=== PATIENT | male | born 1990 | race Hispanic/Latino ===

== ENCOUNTER 2020-11-09 21:29 | Emergency (ER) | payer OTHER ==
[2020-11-09 22:02] LABS: BASOPHILS % (AUTO) 0.2 % (0.0-5.0); EOSINOPHILS % (AUTO) 0.3 % (0.0-8.0); HEMATOCRIT 48.3 % (42-54); LYMPHOCYTES % (AUTO) 5.5 % (21.0-51.0); MEAN CORPUSCULAR HEMOGLOBIN 32.3 pg (27.0-33.0); MEAN CORPUSCULAR VOLUME 92.2 fL (79-99); MONOCYTES % (AUTO) 3.5 % (3.0-13.0); NEUTROPHILS % (AUTO) 90.2 % (40.0-77.0); PLATELET COUNT (AUTO) 340 K/uL (130-400); RED BLOOD CELL COUNT(AUTO) 5.24 MIL/uL (4.50-6.20); RED CELL DISTRIBUTION WIDTH 12.3 % (11.0-15.5); WHITE BLOOD COUNT (AUTO) 20.3 K/uL (4.8-10.8)
[2020-11-09 22:14] LABS: POTASSIUM 3.6 mmol/L (3.5-5.1)
[2020-11-09 22:19] LABS: ALBUMIN 4.7 g/dL (3.5-5.0); BILIRUBIN,TOTAL 1.3 mg/dL (0.2-1.0); TOTAL PROTEIN, SERUM 8.7 g/dL (6.0-8.3)
[2020-11-09] MEDS ORDERED: FAMOTIDINE 20MG TAB 20 MG TAB ONE (22:40)
[2020-11-09] MEDS ORDERED: MAG HYDROX/AL HYDROX/SIMETH ES 30 ML SUSP UDCUP ONE (22:40)
[2020-11-09] MEDS ORDERED: ONDANSETRON HCL 4 MG/2 ML VIAL ONE (22:40)
[2020-11-09] MEDS ORDERED: LIDOCAINE HCL 2% VISCOUS 15 ML UDCUP ONE (22:40)
[2020-11-09] MEDS ORDERED: IOHEXOL-350 75 ML VIAL IV ONE (22:50)
[2020-11-09 22:53] LABS: BILIRUBIN,URINE Small (NEGATIVE); COLOR,URINE Dark Yellow (YELLOW); GLUCOSE, URINE (UA) Negative (NEGATIVE); KETONES,URINE Trace mg/dL (NEGATIVE); LEUKOCYTE ESTERASE ,URINE Negative (NEGATIVE); NITRATE,URINE Negative (NEGATIVE); OCCULT BLOOD,URINE Trace (NEGATIVE); PH,URINE 5.5 (5.0-8.0); PROTEIN,URINE POS 1+ mg/dL (NEGATIVE)
[2020-11-09 22:55] LABS: APPEARANCE,URINE CLOUDY (CLEAR)
[2020-11-09 23:00] LABS: AMORPHOUS SEDIMENT,UR Moderate /LPF (None Seen); BACTERIA,URINE None Seen /HPF (None Seen); MUCUS,URINE Many LPF (None Seen); SQUAMOUS EPITHELIAL CELL,UR Few /HPF (0-2); WBC,URINE 0-1 /HPF (0-1)
[2020-11-09] MEDS ORDERED: ZOSYN 3.375GM+NS 50ML 50 ML IV ONE (23:19)
[2020-11-10] MEDS ORDERED: SODIUM CHLORIDE 0.9% 1000ML 2,000 ML IV ONE (00:01)
[2020-11-10] MEDS ORDERED: METOCLOPRAMIDE 10 MG/2 ML VIAL ONE (00:37)
== END 2020-11-10 01:30 | disposition home or self-care (01) ==
LOC: EDH 21:29
DX: K29.00 Acute gastritis without bleeding (principal); E86.0 Dehydration; Z72.0 Tobacco use
CPT/HCPCS: 36415; 74177; 80053; 81001; 83690; 85025; 96365; 96366; 96375 ×2; 99285; J2405; J2543; J2765; J7030; Q9967

== ENCOUNTER 2021-03-28 13:34 | Inpatient (IN) | payer SELFPAY ==
[~2021-03-28] VITALS: Ht 162.6 cm; Wt 117.9 kg
[2021-03-28 15:46] LABS: BASOPHILS % (AUTO) 0.3 % (0.0-5.0); HEMATOCRIT 45.5 % (42-54); LYMPHOCYTES % (AUTO) 9.4 % (21.0-51.0); MEAN CORPUSCULAR HEMOGLOBIN 32.6 pg (27.0-33.0); MEAN CORPUSCULAR HGB CONC 34.9 g/dL (32.0-36.0); MEAN CORPUSCULAR VOLUME 93.4 fL (79-99); MONOCYTES % (AUTO) 6.1 % (3.0-13.0); NEUTROPHILS % (AUTO) 83.8 % (40.0-77.0); PLATELET COUNT (AUTO) 300 K/uL (130-400); RED BLOOD CELL COUNT(AUTO) 4.87 MIL/uL (4.50-6.20); RED CELL DISTRIBUTION WIDTH 12.8 % (11.0-15.5); WHITE BLOOD COUNT (AUTO) 20.1 K/uL (4.8-10.8)
[2021-03-28 15:57] LABS: CARBON DIOXIDE 32 mmol/L (21-32); CHLORIDE 99 mmol/L (101-111); GLOMERULAR FILTR. RATE CALC 93 mL/min (>60); GLUCOSE,RANDOM 119 mg/dL (70-105); SODIUM SERUM 139 mmol/L (136-145); UREA NITROGEN, BLOOD 9 mg/dL (7-18)
[2021-03-28 16:02] LABS: ALANINE AMINOTRANSFERASE 31 U/L (12-78); ALBUMIN 4.3 g/dL (3.5-5.0); ALCOHOL, BLOOD < 3 mg/dL (0-10); ASPARTATE AMINOTRANSFERASE 11 U/L (10-37); BILIRUBIN,TOTAL 2.7 mg/dL (0.2-1.0); TOTAL PROTEIN, SERUM 8.5 g/dL (6.0-8.3)
[2021-03-28] MEDS ORDERED: ZOSYN 3.375GM +NS 50ML IV ONE (17:30)
[2021-03-28] MEDS ORDERED: ACETAMINOPHEN 325 MG TAB PO ONE (17:30)
[2021-03-28] MEDS ORDERED: ONDANSETRON 4MG INJ IVP ONE (17:30)
[2021-03-28] MEDS ORDERED: MORPHINE 2 MG SYG IVP ONE (17:30)
[2021-03-28] MEDS ORDERED: 0.9%NACL 1000ML 1,000 ML IV ONE (17:30)
[2021-03-28] MEDS ORDERED: IOHEXOL 350 MG/ML 100ML INFUS..BTL IV ONE (17:32)
[2021-03-28] MEDS ORDERED: ZOSYN 3.375GM+NS 50ML 50 ML IV ONE (20:01)
[2021-03-28] MEDS ORDERED: ONDANSETRON 4MG INJ ONE (20:01)
[2021-03-28] MEDS ORDERED: ACETAMINOPHEN 325 MG TAB ONE (20:01)
[2021-03-28] MEDS ORDERED: MORPHINE 2 MG SYG ONE (20:02)
[2021-03-28 20:13] VITALS: BP 160/87
[2021-03-28] MEDS ORDERED: LACTULOSE 20 GM/30 ML UDCUP PO PRN (20:30)
[2021-03-28] MEDS ORDERED: ACETAMINOPHEN 325 MG SUPPOSITORY RC PRN ×2 (20:30)
[2021-03-28] MEDS ORDERED: NITROGLYCERIN 0.4 MG SL TAB SL PRN (20:30)
[2021-03-28] MEDS ORDERED: CHLORDIAZEPOXIDE HCL 25 MG CAP PO PRN ×2 (20:30)
[2021-03-28] MEDS ORDERED: ONDANSETRON 4MG INJ IV PRN (20:30)
[2021-03-28] MEDS: THIAMINE HCL 100 MG, FOLIC ACID 1 MG, M.V.I. IV [ADULT] 10 ML in 0.9%NACL 1000ML 1,000 ML IV SCH (20:30)
[2021-03-28] MEDS ORDERED: LORAZEPAM 2 MG/ML 1 ML VIAL IVP PRN ×2 (20:30)
[2021-03-28] MEDS ORDERED: PHARMACY COMMUNICATION MISC PRN (20:30)
[2021-03-28] MEDS ORDERED: PROMETHAZINE HCL 25 MG TABLET PO PRN (20:30)
[2021-03-28] MEDS ORDERED: 0.9%NACL 1000ML 1,000 ML IV SCH (20:30)
[2021-03-28] MEDS: FAMOTIDINE 20MG VIAL IV SCH (21:00)
[2021-03-28] MEDS: 0.9%NACL 1000ML 1,000 ML IV SCH (21:20)
[2021-03-28 21:36] LABS: INR 1.1 (0.85-1.15); PROTHROMBIN TIME 11.9 SEC (9.6-11.6)
[2021-03-28 21:37] LABS: PARTIAL THROMBOPLASTIN TIME 27.6 SEC (26.3-35.5)
[2021-03-28 21:38] LABS: CRP QUANTITATIVE 161.7 mg/L (0.00-9.0); MAGNESIUM 2.1 mg/dL (1.80-2.40)
[2021-03-28 21:52] LABS: AMYLASE 43 U/L (25-115); LIPASE 88 U/L (114-286)
[2021-03-28 22:55] LABS: APPEARANCE,URINE Clear (CLEAR); BILIRUBIN,URINE Negative (NEGATIVE); COLOR,URINE Yellow (YELLOW); GLUCOSE, URINE (UA) Negative (NEGATIVE); KETONES,URINE 40 mg/dL (NEGATIVE); LEUKOCYTE ESTERASE ,URINE Negative (NEGATIVE); NITRATE,URINE Negative (NEGATIVE); OCCULT BLOOD,URINE Trace (NEGATIVE); PH,URINE 6.5 (5.0-8.0); PROTEIN,URINE Trace mg/dL (NEGATIVE)
[2021-03-28 23:00] VITALS: BP_SYST 108; BP_SYST 156; BP_DIAS 56; BP_DIAS 84
[2021-03-28 23:03] LABS: AMPHET/METH SCREEN,URINE NEGATIVE (NEGATIVE); BARBITURATE SCREEN, URINE NEGATIVE (NEGATIVE); BENZODIAZEPINES SCREEN,URINE NEGATIVE (NEGATIVE); CANNABINOID SCREEN,URINE POSITIVE (NEGATIVE); COCAINE SCREEN,URINE NEGATIVE (NEGATIVE); OPIATE SCREEN,URINE POSITIVE (NEGATIVE); PHENCYCLIDINE SCREEN,URINE NEGATIVE (NEGATIVE)
[2021-03-28 23:27] LABS: BACTERIA,URINE None Seen /HPF (None Seen); RBC,URINE 0-1 /HPF (0-1); SQUAMOUS EPITHELIAL CELL,UR Moderate /HPF (0-2); WBC,URINE 0-1 /HPF (0-1)
[2021-03-29] VITALS (8 sets, daily range): BP systolic 114–150; BP diastolic 62–84
[2021-03-29] MEDS ORDERED: 0.9%NACL 50ML 50 ML IV ONE (04:29)
[2021-03-29] MEDS: ZOSYN 3.375GM+NS 50ML 50 ML IV SCH ×4 (04:39→21:04)
[2021-03-29] MEDS: 0.9%NACL 1000ML 1,000 ML IV SCH ×2 (04:40→17:55)
[2021-03-29 04:52] LABS: BASOPHILS % (AUTO) 0.2 % (0.0-5.0); EOSINOPHILS % (AUTO) 0.9 % (0.0-8.0); HEMATOCRIT 40.8 % (42-54); LYMPHOCYTES % (AUTO) 12.1 % (21.0-51.0); MEAN CORPUSCULAR HEMOGLOBIN 32.2 pg (27.0-33.0); MEAN CORPUSCULAR HGB CONC 34.1 g/dL (32.0-36.0); MEAN CORPUSCULAR VOLUME 94.4 fL (79-99); MONOCYTES % (AUTO) 7.2 % (3.0-13.0); NEUTROPHILS % (AUTO) 79.1 % (40.0-77.0); PLATELET COUNT (AUTO) 237 K/uL (130-400); RED BLOOD CELL COUNT(AUTO) 4.32 MIL/uL (4.50-6.20); RED CELL DISTRIBUTION WIDTH 12.8 % (11.0-15.5)
[2021-03-29 04:58] LABS: CREATININE 0.7 mg/dL (0.5-1.5); POTASSIUM 3.4 mmol/L (3.5-5.1)
[2021-03-29 05:03] LABS: ALBUMIN 3.2 g/dL (3.5-5.0); BILIRUBIN,TOTAL 2.6 mg/dL (0.2-1.0); MAGNESIUM 1.9 mg/dL (1.80-2.40); PHOSPHORUS 2.5 mg/dL (2.5-4.9); TOTAL PROTEIN, SERUM 6.7 g/dL (6.0-8.3)
[2021-03-29] MEDS ORDERED: ENOXAPARIN SODIUM 40 MG/0.4 ML SYRINGE SQ SCH (09:00)
[2021-03-29] MEDS: FAMOTIDINE 20MG VIAL IV SCH ×2 (09:24→21:05)
[2021-03-29] MEDS ORDERED: 0.9%NACL 100ML 100 ML ONE (13:11)
[2021-03-29] MEDS ORDERED: LIDOCAINE HCL-MPF 1% 2ML VIAL IV PRN (14:30)
[2021-03-29] MEDS ORDERED: KCL 20 MEQ ERTAB PO PRN (14:30)
[2021-03-29] MEDS ORDERED: MORPHINE 2 MG SYG IVP PRN (14:30)
[2021-03-29] MEDS ORDERED: POTASSIUM CHLORIDE 20MEQ/100ML 100 ML IV PRN (14:30)
[2021-03-29] MEDS: THIAMINE HCL 100 MG, FOLIC ACID 1 MG, M.V.I. IV [ADULT] 10 ML in 0.9%NACL 1000ML 1,000 ML IV SCH (21:04)
[2021-03-29] MEDS: POTASSIUM CHLORIDE 10% ELIXIR 20 MEQ/15 ML UDCUP PO PRN (21:47)
[2021-03-30] MEDS: POTASSIUM CHLORIDE 10% ELIXIR 20 MEQ/15 ML UDCUP PO PRN (00:12)
[2021-03-30] MEDS: 0.9%NACL 1000ML 1,000 ML IV SCH (02:30)
[2021-03-30 04:09] VITALS: BP 136/73
[2021-03-30] MEDS: ZOSYN 3.375GM+NS 50ML 50 ML IV SCH (04:13)
[2021-03-30 05:05] LABS: BASOPHILS % (AUTO) 0.3 % (0.0-5.0); EOSINOPHILS % (AUTO) 0.7 % (0.0-8.0); HEMATOCRIT 40.1 % (42-54); LYMPHOCYTES % (AUTO) 13.2 % (21.0-51.0); MEAN CORPUSCULAR HEMOGLOBIN 31.9 pg (27.0-33.0); MEAN CORPUSCULAR HGB CONC 33.9 g/dL (32.0-36.0); MEAN CORPUSCULAR VOLUME 94.1 fL (79-99); MONOCYTES % (AUTO) 8.1 % (3.0-13.0); NEUTROPHILS % (AUTO) 77.3 % (40.0-77.0); PLATELET COUNT (AUTO) 286 K/uL (130-400); RED BLOOD CELL COUNT(AUTO) 4.26 MIL/uL (4.50-6.20); RED CELL DISTRIBUTION WIDTH 12.5 % (11.0-15.5); WHITE BLOOD COUNT (AUTO) 12.9 K/uL (4.8-10.8)
[2021-03-30 05:26] LABS: ALBUMIN 3.2 g/dL (3.5-5.0); BILIRUBIN,TOTAL 2.8 mg/dL (0.2-1.0); CREATININE 0.9 mg/dL (0.5-1.5); MAGNESIUM 1.9 mg/dL (1.80-2.40); PHOSPHORUS 2.8 mg/dL (2.5-4.9); POTASSIUM 3.9 mmol/L (3.5-5.1)
[2021-03-30 07:35] VITALS: BP 128/69
[2021-03-30] MEDS ORDERED: AMOX-429 PO (08:20)
[2021-03-30] MEDS ORDERED: PANT40TA PO (08:20)
[2021-03-30] MEDS: FAMOTIDINE 20MG VIAL IV SCH (08:45)
[2021-03-30 12:00] VITALS: BP 156/89
== END 2021-03-30 14:20 | disposition home or self-care (01) | DRG 872 ==
LOC: EDH 13:34 → EDHIP 13:35 → 3DH 03-29 15:45
PROVIDERS: ADMIT Hospitalist; ATTEND Hospitalist
DX: A41.9 Sepsis, unspecified organism (principal); K57.32 Diverticulitis of large intestine without perforation or abscess without bleeding; Z68.41 Body mass index [BMI] 40.0-44.9, adult; E66.01 Morbid (severe) obesity due to excess calories; K42.9 Umbilical hernia without obstruction or gangrene; Z20.822 Contact with and (suspected) exposure to COVID-19; K76.0 Fatty (change of) liver, not elsewhere classified; Z83.6 Family history of other diseases of the respiratory system
CPT/HCPCS: 36415; 71045; 74177; 76870; 80053; 80305; 81001; 82150; 83605; 83690; 83735; 84100; 84145; 85025; 85610; 85651; 85730; 86140; 87040; 87088; 87635; 87804; 87880; C9803; G0378; J1650; J2405; J2543; J3411; J3490; J7030; Q9967

== ENCOUNTER 2021-04-01 09:12 | Inpatient (IN) | payer OTHER, SELFPAY ==
[~2021-04-01] VITALS: Ht 162.6 cm; Wt 117.9 kg
[~2021-04-01 09:12] MED LIST: AMOX-429 PO; PANT40TA PO
[2021-04-01 09:53] LABS: BASOPHILS % (AUTO) 0.4 % (0.0-5.0); EOSINOPHILS % (AUTO) 1.1 % (0.0-8.0); HEMATOCRIT 42.4 % (42-54); LYMPHOCYTES % (AUTO) 17.7 % (21.0-51.0); MEAN CORPUSCULAR HEMOGLOBIN 32.2 pg (27.0-33.0); MEAN CORPUSCULAR HGB CONC 34.9 g/dL (32.0-36.0); MEAN CORPUSCULAR VOLUME 92.2 fL (79-99); MONOCYTES % (AUTO) 8.6 % (3.0-13.0); NEUTROPHILS % (AUTO) 71.8 % (40.0-77.0); PLATELET COUNT (AUTO) 365 K/uL (130-400); RED CELL DISTRIBUTION WIDTH 12.5 % (11.0-15.5); WHITE BLOOD COUNT (AUTO) 11.8 K/uL (4.8-10.8)
[2021-04-01] MEDS ORDERED: ONDANSETRON 4MG INJ IVP SCH (10:00)
[2021-04-01] MEDS ORDERED: KETOROLAC 30MG VIAL (30MG/ML) IVP SCH (10:00)
[2021-04-01] MEDS ORDERED: LACTATED RINGERS 1000ML 1,000 ML IV SCH (10:00)
[2021-04-01 10:04] LABS: POTASSIUM 3.2 mmol/L (3.5-5.1)
[2021-04-01 10:09] LABS: ALBUMIN 3.8 g/dL (3.5-5.0); BILIRUBIN,TOTAL 1.4 mg/dL (0.2-1.0)
[2021-04-01] MEDS ORDERED: FENTANYL CITRATE PF 50 MCG/1 ML 2ML VIAL IVP SCH (10:30)
[2021-04-01] MEDS ORDERED: DiphenhydrAMINE HCL 50 MG/ML VIAL IV SCH (11:00)
[2021-04-01] MEDS ORDERED: FAMOTIDINE 20MG VIAL IV SCH (11:00)
[2021-04-01] MEDS ORDERED: PROCHLORPERAZINE 10MG/2ML INJ IV SCH (11:00)
[2021-04-01 12:53] VITALS: BP 131/56
[2021-04-01] MEDS ORDERED: LACTATED RINGERS 1000ML 1,000 ML IV ONE (13:30)
[2021-04-01] MEDS ORDERED: ZOSYN 3.375GM +NS 50ML IV ONE (13:30)
[2021-04-01] MEDS ORDERED: ZOSYN 3.375GM+NS 50ML 50 ML IV ONE (14:43)
[2021-04-01 15:14] VITALS: BP 131/64
[2021-04-01 16:57] VITALS: BP 140/78
[2021-04-01] MEDS ORDERED: 0.9%NACL 50ML 50 ML IV ONE (20:57)
[2021-04-01] MEDS: FAMOTIDINE 20MG VIAL IV SCH (21:09)
[2021-04-01] MEDS: ZOSYN 3.375GM+NS 50ML 50 ML IV SCH (21:09)
[2021-04-01 21:11] VITALS: BP 122/59
[2021-04-01 22:32] VITALS: BP 123/68
[2021-04-01 23:00] VITALS: BP 136/67
[2021-04-02 04:07] VITALS: BP 113/61
[2021-04-02] MEDS: ZOSYN 3.375GM+NS 50ML 50 ML IV SCH ×3 (04:37→20:40)
[2021-04-02] MEDS ORDERED: ONDANSETRON 4MG INJ IVP PRN (07:30)
[2021-04-02 08:00] VITALS: BP 122/67
[2021-04-02] MEDS: FAMOTIDINE 20MG VIAL IV SCH ×2 (09:00→20:41)
[2021-04-02 11:55] VITALS: BP 124/74
[2021-04-02] MEDS ORDERED: MORPHINE 2 MG SYG IVP PRN (13:27)
[2021-04-02 16:00] VITALS: BP 133/69
[2021-04-02 19:30] VITALS: BP 121/63
[2021-04-02] MEDS: POTASSIUM CHLORIDE 20MEQ/100ML 100 ML IV PRN (20:41)
[2021-04-02] MEDS: LIDOCAINE HCL-MPF 1% 2ML VIAL IV PRN (20:41)
[2021-04-03] VITALS (7 sets, daily range): BP systolic 110–144; BP diastolic 51–82
[2021-04-03] MEDS: POTASSIUM CHLORIDE 20MEQ/100ML 100 ML IV PRN (03:38)
[2021-04-03] MEDS: ZOSYN 3.375GM+NS 50ML 50 ML IV SCH ×3 (03:38→20:11)
[2021-04-03] MEDS: LIDOCAINE HCL-MPF 1% 2ML VIAL IV PRN (03:38)
[2021-04-03 05:57] LABS: BASOPHILS % (AUTO) 0.8 % (0.0-5.0); EOSINOPHILS % (AUTO) 1.1 % (0.0-8.0); HEMATOCRIT 39.9 % (42-54); LYMPHOCYTES % (AUTO) 24.4 % (21.0-51.0); MEAN CORPUSCULAR HEMOGLOBIN 32.2 pg (27.0-33.0); MEAN CORPUSCULAR HGB CONC 34.6 g/dL (32.0-36.0); MEAN CORPUSCULAR VOLUME 93.2 fL (79-99); MONOCYTES % (AUTO) 7.7 % (3.0-13.0); NEUTROPHILS % (AUTO) 65.7 % (40.0-77.0); PLATELET COUNT (AUTO) 329 K/uL (130-400); RED BLOOD CELL COUNT(AUTO) 4.28 MIL/uL (4.50-6.20); RED CELL DISTRIBUTION WIDTH 12.5 % (11.0-15.5); WHITE BLOOD COUNT (AUTO) 10.1 K/uL (4.8-10.8)
[2021-04-03 06:07] LABS: POTASSIUM 3.6 mmol/L (3.5-5.1)
[2021-04-03 08:56] LABS: APPEARANCE,URINE Clear (CLEAR); BILIRUBIN,URINE Negative (NEGATIVE); COLOR,URINE Dark Yellow (YELLOW); GLUCOSE, URINE (UA) Negative (NEGATIVE); KETONES,URINE >=160 mg/dL (NEGATIVE); LEUKOCYTE ESTERASE ,URINE Negative (NEGATIVE); NITRATE,URINE Negative (NEGATIVE); OCCULT BLOOD,URINE Nonhemolyzed Trace (NEGATIVE); PH,URINE 5.5 (5.0-8.0); PROTEIN,URINE POS 1+ mg/dL (NEGATIVE)
[2021-04-03 09:23] LABS: BACTERIA,URINE Few /HPF (None Seen); RBC,URINE 0-1 /HPF (0-1)
[2021-04-03] MEDS: FAMOTIDINE 20MG VIAL IV SCH ×2 (09:27→20:11)
[2021-04-04] MEDS ORDERED: POTASSIUM CHLORIDE 10% ELIXIR 20 MEQ/15 ML UDCUP PO PRN
[2021-04-04] MEDS ORDERED: KCL 20 MEQ ERTAB PO PRN
[2021-04-04] MEDS ORDERED: KCL 20 MEQ ERTAB PO ONE ×2 (00:10→02:10)
[2021-04-04 04:01] VITALS: BP 142/91
[2021-04-04] MEDS: ZOSYN 3.375GM+NS 50ML 50 ML IV SCH ×3 (05:31→20:43)
[2021-04-04 05:57] LABS: BASOPHILS % (AUTO) 0.3 % (0.0-5.0); EOSINOPHILS % (AUTO) 1.3 % (0.0-8.0); HEMATOCRIT 40.6 % (42-54); LYMPHOCYTES % (AUTO) 24.9 % (21.0-51.0); MEAN CORPUSCULAR HEMOGLOBIN 32.3 pg (27.0-33.0); MEAN CORPUSCULAR VOLUME 92.3 fL (79-99); MONOCYTES % (AUTO) 7.8 % (3.0-13.0); NEUTROPHILS % (AUTO) 65.3 % (40.0-77.0); PLATELET COUNT (AUTO) 365 K/uL (130-400); RED CELL DISTRIBUTION WIDTH 12.1 % (11.0-15.5); WHITE BLOOD COUNT (AUTO) 10.2 K/uL (4.8-10.8)
[2021-04-04 06:15] LABS: ALBUMIN 3.4 g/dL (3.5-5.0); BILIRUBIN,TOTAL 2.2 mg/dL (0.2-1.0); CREATININE 0.9 mg/dL (0.5-1.5); POTASSIUM 3.8 mmol/L (3.5-5.1); TOTAL PROTEIN, SERUM 7.2 g/dL (6.0-8.3)
[2021-04-04 08:00] VITALS: BP 126/72
[2021-04-04] MEDS: FAMOTIDINE 20MG VIAL IV SCH ×2 (09:12→20:43)
[2021-04-04 11:40] VITALS: BP 132/86
[2021-04-04 16:00] VITALS: BP 143/88
[2021-04-04 19:59] VITALS: BP 140/96
[2021-04-04 23:17] VITALS: BP 123/75
[2021-04-05 04:00] VITALS: BP 133/76
[2021-04-05] MEDS: ZOSYN 3.375GM+NS 50ML 50 ML IV SCH ×3 (04:12→21:52)
[2021-04-05 05:10] LABS: BASOPHILS % (AUTO) 0.5 % (0.0-5.0); EOSINOPHILS % (AUTO) 0.9 % (0.0-8.0); LYMPHOCYTES % (AUTO) 19.1 % (21.0-51.0); MEAN CORPUSCULAR HEMOGLOBIN 31.7 pg (27.0-33.0); MEAN CORPUSCULAR HGB CONC 34.3 g/dL (32.0-36.0); MEAN CORPUSCULAR VOLUME 92.5 fL (79-99); MONOCYTES % (AUTO) 8.7 % (3.0-13.0); NEUTROPHILS % (AUTO) 70.3 % (40.0-77.0); PLATELET COUNT (AUTO) 366 K/uL (130-400); RED BLOOD CELL COUNT(AUTO) 4.54 MIL/uL (4.50-6.20); RED CELL DISTRIBUTION WIDTH 12.2 % (11.0-15.5); WHITE BLOOD COUNT (AUTO) 10.6 K/uL (4.8-10.8)
[2021-04-05 05:31] LABS: ALBUMIN 3.4 g/dL (3.5-5.0); BILIRUBIN,TOTAL 2.5 mg/dL (0.2-1.0); POTASSIUM 3.5 mmol/L (3.5-5.1); TOTAL PROTEIN, SERUM 7.4 g/dL (6.0-8.3)
[2021-04-05 05:35] LABS: INR 1.18 (0.85-1.15); PROTHROMBIN TIME 12.7 SEC (9.6-11.6)
[2021-04-05 05:36] LABS: PARTIAL THROMBOPLASTIN TIME 26.8 SEC (26.3-35.5)
[2021-04-05 08:00] VITALS: BP 135/60
[2021-04-05] MEDS ORDERED: DIATR MEGLU/DIATRIZOATE SODIUM 30 ML BOTTLE ONE (09:18)
[2021-04-05] MEDS: FAMOTIDINE 20MG VIAL IV SCH ×2 (10:47→21:52)
[2021-04-05] MEDS ORDERED: IOHEXOL-350 75 ML VIAL IV ONE (14:25)
[2021-04-05 16:00] VITALS: BP 133/80
[2021-04-05 20:00] VITALS: BP 121/78
[2021-04-06] VITALS: BP 136/69
[2021-04-06 04:00] VITALS: BP 121/78
[2021-04-06] MEDS: ZOSYN 3.375GM+NS 50ML 50 ML IV SCH ×3 (04:25→20:34)
[2021-04-06 04:46] LABS: BASOPHILS % (AUTO) 0.4 % (0.0-5.0); EOSINOPHILS % (AUTO) 1.3 % (0.0-8.0); HEMATOCRIT 41.4 % (42-54); LYMPHOCYTES % (AUTO) 16.4 % (21.0-51.0); MEAN CORPUSCULAR HEMOGLOBIN 32.2 pg (27.0-33.0); MEAN CORPUSCULAR HGB CONC 35.3 g/dL (32.0-36.0); MEAN CORPUSCULAR VOLUME 91.2 fL (79-99); MONOCYTES % (AUTO) 7.8 % (3.0-13.0); NEUTROPHILS % (AUTO) 73.5 % (40.0-77.0); PLATELET COUNT (AUTO) 375 K/uL (130-400); RED BLOOD CELL COUNT(AUTO) 4.54 MIL/uL (4.50-6.20); RED CELL DISTRIBUTION WIDTH 12.2 % (11.0-15.5); WHITE BLOOD COUNT (AUTO) 12.7 K/uL (4.8-10.8)
[2021-04-06 05:13] LABS: ALBUMIN 3.5 g/dL (3.5-5.0); BILIRUBIN,TOTAL 2.4 mg/dL (0.2-1.0); CREATININE 0.9 mg/dL (0.5-1.5); POTASSIUM 3.8 mmol/L (3.5-5.1); TOTAL PROTEIN, SERUM 7.5 g/dL (6.0-8.3)
[2021-04-06 08:19] VITALS: BP 138/81
[2021-04-06] MEDS ORDERED: METR500T PO (09:47)
[2021-04-06] MEDS ORDERED: LEVO750T46 PO (09:47)
[2021-04-06] MEDS: FAMOTIDINE 20MG VIAL IV SCH ×2 (10:45→20:33)
[2021-04-06 11:41] VITALS: BP 126/78
[2021-04-06 16:45] VITALS: BP 130/80
[2021-04-06 20:15] VITALS: BP 135/82
[2021-04-07 00:27] VITALS: BP 132/80
[2021-04-07 04:14] VITALS: BP 122/91
[2021-04-07] MEDS: ZOSYN 3.375GM+NS 50ML 50 ML IV SCH ×3 (04:33→21:15)
[2021-04-07 08:00] VITALS: BP 110/62
[2021-04-07] MEDS: FAMOTIDINE 20MG VIAL IV SCH ×2 (09:26→20:23)
[2021-04-07 12:00] VITALS: BP 134/85
[2021-04-07 16:00] VITALS: BP 126/86
[2021-04-07] MEDS: FLUCONAZOLE 200 MG/NS 100 ML 100 ML IV SCH (16:47)
[2021-04-07 20:00] VITALS: BP 140/80
[2021-04-07] MEDS ORDERED: ACETAMINOPHEN 325 MG TAB PO PRN (21:00)
[2021-04-08] VITALS: BP 126/67
[2021-04-08 04:00] VITALS: BP 128/75
[2021-04-08] MEDS: ZOSYN 3.375GM+NS 50ML 50 ML IV SCH ×2 (06:35→15:19)
[2021-04-08 08:00] VITALS: BP 140/80
[2021-04-08] MEDS: FAMOTIDINE 20MG VIAL IV SCH (09:36)
[2021-04-08 12:00] VITALS: BP 141/74
[2021-04-08] MEDS: FLUCONAZOLE 200 MG/NS 100 ML 100 ML IV SCH (15:21)
[2021-04-08 16:00] VITALS: BP 140/71
[2021-04-08] MEDS ORDERED: AMOX-429 PO (16:39)
[2021-04-08] MEDS ORDERED: FLUC200T8 PO (16:39)
== END 2021-04-08 18:00 | disposition home or self-care (01) | DRG 391 ==
LOC: EDH 09:12 → EDHIP 09:13 → OBSVTOIN 09:13 → 3CH 22:24
PROVIDERS: ADMIT Internal Medicine; ATTEND Internal Medicine
DX: K57.20 Diverticulitis of large intestine with perforation and abscess without bleeding (principal); K65.9 Peritonitis, unspecified; N20.2 Calculus of kidney with calculus of ureter; Z68.41 Body mass index [BMI] 40.0-44.9, adult; E66.9 Obesity, unspecified; F12.90 Cannabis use, unspecified, uncomplicated; Z83.6 Family history of other diseases of the respiratory system; Z80.8 Family history of malignant neoplasm of other organs or systems
CPT/HCPCS: 36415; 74176; 74178; 80048; 80053; 81001; 85025; 85610; 85730; G0378; J0780; J1200; J1450; J1885; J2405; J2543; J3010; J3480; J3490; J7120; Q9963; Q9967

== ENCOUNTER 2021-05-26 10:28 | Day surgery (SDC) | payer SELFPAY ==
[~2021-05-26] VITALS: Ht 157.5 cm; Wt 108.4 kg
[~2021-05-26 10:28] MED LIST changes: +0.9%NACL 1000ML 1,000 ML IV ONE; +ACET-2743 PO; -AMOX-429 PO; +LIDOCAINE HCL-MPF 0.5% 50ML VIAL IJ ONE; -PANT40TA PO
[2021-05-26 10:45] VITALS: BP 122/74
[2021-05-26] MEDS ORDERED: PROPOFOL 10 MG/ML 20ML VIAL IV ONE ×2 (13:18→14:25)
[2021-05-26] MEDS ORDERED: LIDOCAINE PF 100MG/5ML (2%) SYRINGE 5ML ONE (13:19)
[2021-05-26 14:50] VITALS: BP 125/72
[2021-05-26 14:55] VITALS: BP 120/81
[2021-05-26 15:00] VITALS: BP 121/74
[2021-05-26 15:10] VITALS: BP 133/91
[2021-05-26 15:20] VITALS: BP 137/83
== END 2021-05-26 15:20 | disposition home or self-care (01) ==
LOC: DAH 10:28
PROVIDERS: ATTEND Student in an Organized Health Care Education/Training Program
DX: R10.32 Left lower quadrant pain (principal); K57.20 Diverticulitis of large intestine with perforation and abscess without bleeding; N40.0 Benign prostatic hyperplasia without lower urinary tract symptoms; Z79.899 Other long term (current) drug therapy; Z20.822 Contact with and (suspected) exposure to COVID-19
CPT/HCPCS: 45378; 87635; A4215 ×2; A4221; A4222; A4223; A4606; A4620; A4663; C9803; J2001; J2704 ×2; J3490; J7030

== ENCOUNTER 2022-02-10 23:04 | Emergency (ER) | payer BC, OTHER, SELFPAY ==
[~2022-02-10] VITALS: Ht 157.5 cm; Wt 104.8 kg
[~2022-02-10 23:04] MED LIST changes: -0.9%NACL 1000ML 1,000 ML IV ONE; -LIDOCAINE HCL-MPF 0.5% 50ML VIAL IJ ONE
[2022-02-10] MEDS ORDERED: ONDANSETRON 4MG INJ ONE (23:23)
[2022-02-10] MEDS ORDERED: FAMOTIDINE 20MG VIAL IV ONE (23:23)
[2022-02-10] MEDS ORDERED: 0.9%NACL 1000ML 1,000 ML IV ONE (23:23)
[2022-02-10 23:27] LABS: BASOPHILS % (AUTO) 0.4 % (0.0-5.0); EOSINOPHILS % (AUTO) 0.7 % (0.0-8.0); HEMATOCRIT 44.3 % (42-54); LYMPHOCYTES % (AUTO) 20.8 % (21.0-51.0); MEAN CORPUSCULAR HEMOGLOBIN 32.6 pg (27.0-33.0); MEAN CORPUSCULAR VOLUME 93.3 fL (79-99); MONOCYTES % (AUTO) 6.7 % (3.0-13.0); NEUTROPHILS % (AUTO) 71.1 % (40.0-77.0); PLATELET COUNT (AUTO) 283 K/uL (130-400); RED BLOOD CELL COUNT(AUTO) 4.75 MIL/uL (4.50-6.20); RED CELL DISTRIBUTION WIDTH 12.4 % (11.0-15.5); WHITE BLOOD COUNT (AUTO) 10.5 K/uL (4.8-10.8)
[2022-02-10 23:37] LABS: CREATININE 0.8 mg/dL (0.5-1.5); POTASSIUM 3.5 mmol/L (3.5-5.1)
[2022-02-10 23:42] LABS: ALBUMIN 3.8 g/dL (3.5-5.0); BILIRUBIN,TOTAL 0.6 mg/dL (0.2-1.0); TOTAL PROTEIN, SERUM 7.3 g/dL (6.0-8.3)
[2022-02-11] MEDS ORDERED: AMOX1TAB16 PO (03:20)
[2022-02-11] MEDS ORDERED: ONDA4TAB10 PO (03:20)
[2022-02-11] MEDS ORDERED: ACET-2079 PO (03:20)
[2022-02-11 03:25] VITALS: BP 118/74
[2022-02-11] MEDS ORDERED: DICYCLOMINE HCL 10 MG/5 ML ML PO ONE (03:30)
[2022-02-11] MEDS ORDERED: AMOX/CLAV 875/125MG TAB PO ONE (03:30)
[2022-02-11] MEDS ORDERED: LIDOCAINE HCL 2% VISCOUS 15 ML UDCUP PO ONE (03:30)
[2022-02-11] MEDS ORDERED: MAG/ALUM/SIMETH 30 ML UDCUP PO ONE (03:30)
== END 2022-02-11 03:44 | disposition home or self-care (01) ==
LOC: EDH 23:04
DX: K57.90 Diverticulosis of intestine, part unspecified, without perforation or abscess without bleeding (principal); Z20.822 Contact with and (suspected) exposure to COVID-19; Z98.890 Other specified postprocedural states
CPT/HCPCS: 36415; 74176; 80053; 82150; 85025; 87635; 87804 ×2; 96361; 96374; 96375; 99284; C9803; J2405; J3490; J7030

== ENCOUNTER 2023-05-06 19:39 | Emergency (ER) | payer BC ==
[~2023-05-06] VITALS: Ht 157.5 cm; Wt 114.1 kg
[~2023-05-06 19:39] MED LIST changes: +ACET-2079 PO; +AMOX1TAB16 PO; +ONDA4TAB10 PO
[2023-05-06 20:22] LABS: BASOPHILS # (AUTO) 0.06 K/uL (0.00-0.20); BASOPHILS % (AUTO) 0.7 % (0.0-5.0); EOSINOPHILS # (AUTO) 0.07 K/uL (0.00-0.70); EOSINOPHILS % (AUTO) 0.8 % (0.0-8.0); IMMATURE GRANULOCYTE ABSOLUTE 0.04 K/uL (0-1); LYMPHOCYTES # (AUTO) 2.5 K/uL (1.0-4.8); LYMPHOCYTES % (AUTO) 27.3 % (21.0-51.0); MEAN CORPUSCULAR HEMOGLOBIN 32.7 pg (27.0-33.0); MEAN CORPUSCULAR HGB CONC 34.9 g/dL (32.0-36.0); MEAN CORPUSCULAR VOLUME 93.7 fL (79-99); MONOCYTES # (AUTO) 0.5 K/uL (0.1-1.0); MONOCYTES % (AUTO) 5.1 % (3.0-13.0); NEUTROPHILS % (AUTO) 65.7 % (40.0-77.0); PLATELET COUNT (AUTO) 316 K/uL (130-400); RED BLOOD CELL COUNT(AUTO) 4.59 MIL/uL (4.50-6.20); RED CELL DISTRIBUTION WIDTH 12.6 % (11.0-15.5); WHITE BLOOD COUNT (AUTO) 9.1 K/uL (4.8-10.8)
[2023-05-06] MEDS ORDERED: ONDANSETRON 4MG INJ IVP ONE (20:30)
[2023-05-06] MEDS ORDERED: 0.9%NACL 1000ML 1,000 ML IV ONE (20:30)
[2023-05-06 20:33] LABS: CREATININE 0.9 mg/dL (0.5-1.5); POTASSIUM 3.6 mmol/L (3.5-5.1)
[2023-05-06 20:35] LABS: APPEARANCE,URINE CLEAR (CLEAR); BILIRUBIN,URINE NEGATIVE (NEGATIVE); COLOR,URINE YELLOW (YELLOW); GLUCOSE, URINE (UA) NEGATIVE (NEGATIVE); KETONES,URINE NEGATIVE (NEGATIVE); LEUKOCYTE ESTERASE ,URINE NEGATIVE Leu/uL (NEGATIVE); NITRATE,URINE NEGATIVE (NEGATIVE); OCCULT BLOOD,URINE MODERATE (NEGATIVE); PH,URINE 5.5 (5.0-8.0); PROTEIN,URINE 20 mg/dL (NEGATIVE); UROBILINOGEN,URINE 0.2 mg/dL (0.2-1.0)
[2023-05-06 20:39] LABS: BILIRUBIN,TOTAL 0.7 mg/dL (0.2-1.0); TOTAL PROTEIN, SERUM 7.5 g/dL (6.0-8.3)
[2023-05-06 20:42] LABS: ADD UA MICROSCOPIC YES
[2023-05-06 20:43] LABS: BACTERIA,URINE FEW /HPF (None Seen); MUCUS,URINE FEW LPF (None Seen); SQUAMOUS EPITHELIAL CELL,UR RARE /HPF (0-2)
[2023-05-06] MEDS ORDERED: IOHEXOL-350 75 ML VIAL IV ONE (20:45)
[2023-05-06 21:48] VITALS: BP 124/69; PULSE 77; RESP 18; O2SAT 100
[2023-05-06] MEDS ORDERED: KETOROLAC 30MG VIAL (30MG/ML) IVP ONE (22:00)
[2023-05-06] MEDS ORDERED: TAMSULOSIN HCL 0.4 MG CAP.ER.24H PO ONE (22:00)
[2023-05-06] MEDS ORDERED: TAMS-1 PO (22:07)
[2023-05-06] MEDS ORDERED: IBUP-2070 PO (22:07)
== END 2023-05-06 22:24 | disposition home or self-care (01) ==
LOC: EDH 19:39
DX: N20.0 Calculus of kidney (principal); Z79.899 Other long term (current) drug therapy; Z98.890 Other specified postprocedural states
CPT/HCPCS: 99284; 74177; 96374; 96361; 80053; 83690; 85025; 81001; 36415; J7030; J1885; Q9967

== ENCOUNTER 2023-05-10 21:52 | Emergency (ER) | payer BC ==
[~2023-05-10] VITALS: Ht 157.5 cm; Wt 119.7 kg
[~2023-05-10 21:52] MED LIST changes: +IBUP-2070 PO; +TAMS-1 PO
[2023-05-10 22:10] VITALS: BP 135/71; PULSE 89; RESP 18
[2023-05-10 23:07] LABS: BASOPHILS # (AUTO) 0.07 K/uL (0.00-0.20); BASOPHILS % (AUTO) 0.5 % (0.0-5.0); EOSINOPHILS # (AUTO) 0.05 K/uL (0.00-0.70); EOSINOPHILS % (AUTO) 0.4 % (0.0-8.0); HEMATOCRIT 42.4 % (42-54); IMMATURE GRANULOCYTE ABSOLUTE 0.05 K/uL (0-1); LYMPHOCYTES # (AUTO) 2.7 K/uL (1.0-4.8); LYMPHOCYTES % (AUTO) 20.2 % (21.0-51.0); MEAN CORPUSCULAR HEMOGLOBIN 32.7 pg (27.0-33.0); MEAN CORPUSCULAR HGB CONC 34.4 g/dL (32.0-36.0); MEAN CORPUSCULAR VOLUME 94.9 fL (79-99); MONOCYTES # (AUTO) 0.8 K/uL (0.1-1.0); MONOCYTES % (AUTO) 6.1 % (3.0-13.0); NEUTROPHILS # (AUTO) 9.6 K/uL (1.8-7.7); NEUTROPHILS % (AUTO) 72.4 % (40.0-77.0); PLATELET COUNT (AUTO) 299 K/uL (130-400); RED BLOOD CELL COUNT(AUTO) 4.47 MIL/uL (4.50-6.20); RED CELL DISTRIBUTION WIDTH 12.5 % (11.0-15.5); WHITE BLOOD COUNT (AUTO) 13.2 K/uL (4.8-10.8)
[2023-05-10 23:24] LABS: CREATININE 0.8 mg/dL (0.5-1.5); POTASSIUM 3.3 mmol/L (3.5-5.1)
[2023-05-10 23:27] LABS: INR 0.94 (0.85-1.15)
[2023-05-10 23:28] LABS: PARTIAL THROMBOPLASTIN TIME 26.7 SEC (26.3-35.5)
[2023-05-10 23:29] LABS: ALBUMIN 3.9 g/dL (3.5-5.0); BILIRUBIN,TOTAL 0.7 mg/dL (0.2-1.0); TOTAL PROTEIN, SERUM 7.2 g/dL (6.0-8.3)
[2023-05-11 00:17] LABS: APPEARANCE,URINE CLEAR (CLEAR); BILIRUBIN,URINE NEGATIVE (NEGATIVE); COLOR,URINE COLORLESS (YELLOW); GLUCOSE, URINE (UA) NEGATIVE (NEGATIVE); KETONES,URINE NEGATIVE (NEGATIVE); LEUKOCYTE ESTERASE ,URINE NEGATIVE Leu/uL (NEGATIVE); NITRATE,URINE NEGATIVE (NEGATIVE); OCCULT BLOOD,URINE NEGATIVE (NEGATIVE); PH,URINE 7.5 (5.0-8.0); PROTEIN,URINE NEGATIVE (NEGATIVE); UROBILINOGEN,URINE 0.2 mg/dL (0.2-1.0)
[2023-05-11 00:22] LABS: ADD UA MICROSCOPIC NO
[2023-05-11] MEDS ORDERED: POTASSIUM BICARB/CIT AC 25 MEQ TABLET.EFF PO ONE (00:30)
== END 2023-05-11 00:33 | disposition home or self-care (01) ==
LOC: EDH 21:52
DX: S30.1XXA Contusion of abdominal wall, initial encounter (principal); E87.6 Hypokalemia; Z79.899 Other long term (current) drug therapy; Z98.890 Other specified postprocedural states; X58.XXXA Exposure to other specified factors, initial encounter; Y93.89 Activity, other specified; Y92.89 Other specified places as the place of occurrence of the external cause; Y99.8 Other external cause status
CPT/HCPCS: 36415; 74176; 80053; 81003; 85025; 85610; 85730

== ENCOUNTER 2024-10-22 23:01 | Emergency (ER) | payer BC ==
[~2024-10-22] VITALS: Ht 157.5 cm; Wt 120.2 kg
[~2024-10-22 23:01] MED LIST changes: +ONDA-243 PO; -ONDA4TAB10 PO
--- NOTE | 2024-10-22 23:02 | NUR ---
UA CUP PROVIDED
--- NOTE | 2024-10-22 23:22 | ERN ---
ED Note History of Present Illness Stated Complaint: EPIGASTRIC PAIN Chief Complaint: Abdominal Pain Time Seen by MD: 23:03 Time Seen by Midlevel: 23:03 Dictation: Mr. Carney is a 34-year-old male with history of obesity, diverticulosis, and diverticulitis/bowel resection 2021 who presented to the emergency department this evening for evaluation of epigastric pain. Reports intermittent upper abdominal/epigastric pain x2 weeks which worsened tonight after eating [employer] meal. Says he has had slight nausea without emesis. He denies having fever, chills, shortness of breath, cough, chest pain, palpitations, edema, diarrhea, melena, hematochezia, hematemesis normal dysuria, headache, or dizziness. Allergies: Coded Allergies: No Known Allergies (Unverified Allergy, Unknown, 11/10/20) Emergency Care STATION DETECTIVE: None Home Meds Active Scripts Omeprazole (Omeprazole) 40 Mg Capsule.dr, 1 CAP PO DAILY for 30 Days, #30 CAP 0 Refills Prov:PATO DAVIS NP 10/23/24 Polyethylene Glycol 3350 (Miralax) 17 Gram Powd.pack, 17 GM PO DAILY for 7 Days, #7 PACKET 0 Refills Prov:PATO DAVIS NP 10/23/24 Ibuprofen (Ibuprofen) 600 Mg Tablet, 600 MG PO Q6H PRN for PAIN, #30 TAB Prov:CASEY SARGENT [facility] 05/06/23 Tamsulosin HCl (Flomax) 0.4 Mg Cap.er.24h, 0.4 MG PO DAILY, #14 CAPSULE. Prov:CASEY SARGENT [facility] 05/06/23 Ondansetron (Ondansetron Odt) 4 Mg Tab.rapdis, 4 MG PO TID for NAUSEA, #15 TAB Prov:GUICHO JIMÉNEZ MD 02/11/22 Acetaminophen with Codeine (Acetaminophen-Cod #3 Tablet) 1 Each Tablet, 1 TAB PO Q6H PRN for PAIN LEVEL 7 TO 10, #10 TAB Prov:GUICHO JIMÉNEZ MD 02/11/22 Amoxicillin/Potassium Clav (Amox Tr-K Clv 875-125 mg Tab) 1 Each Tablet, 1 EACH PO BID for 7 Days, #14 TAB Prov:GUICHO JIMÉNEZ MD 02/11/22 Reported Medications Acetaminophen (Tylenol Extra Strength) 500 Mg Tablet, 1000 MG PO AD, TAB 05/25/21 Past Medical History Past Medical History: Diverticulitis, Diverticulosis Surgical History: Other Surgical History Other: COLON RESECTION DUE TO DIVERTICULITIS Social History: Drugs, ETOH RN Note Reviewed/Agreed w/PFSH: Yes Review of System Dictation REVIEW OF SYSTEMS: CONSTITUTIONAL: Patient denies fevers, chills, sweats and weight changes. EYES: Patient denies any visual symptoms. EARS, NOSE, AND THROAT: No difficulties with hearing. No symptoms of rhinitis or sore throat. CARDIOVASCULAR: Patient denies chest pains, palpitations, orthopnea and paroxysmal nocturnal dyspnea. RESPIRATORY: No dyspnea on exertion, no wheezing or cough. GI: No vomiting, diarrhea, constipation, abdominal pain, hematochezia or melena. Reports upper abdominal epigastric pain intermittently x2 weeks; worse tonight after eating [employer]. Reports history of diverticulosis/diverticulitis with bowel resection in 2021 : No urinary hesitancy or dribbling. No nocturia or urinary frequency. No abnormal urethral discharge. MUSCULOSKELETAL: No myalgias or arthralgias. NEUROLOGIC: No chronic headaches, no seizures. Patient denies numbness, tingling or weakness. PSYCHIATRIC: Patient denies problems with mood disturbance. No problems with anxiety. ENDOCRINE: No excessive urination or excessive thirst. DERMATOLOGIC: Patient denies any rashes or skin changes. Initial Vital Sign VS Vital Signs Date Time Temp Pulse Resp B/P (MAP) Pulse Ox O2 Delivery O2 Flow Rate FiO2 10/22/24 23:02 99.0 100 20 153/93 100 Room Air 10/22/24 23:49 0 21 Physical Exam Dictation Vital signs: Reviewed. Afebrile Constitutional: No acute distress. Non-toxic appearing. Head/Face: Normocephalic, atraumatic. Eyes: Periorbital areas with no swelling, redness, or edema. Lids and lashes are normal. Conjunctival injection is absent. Sclera anicteric. Pupils equal, round, reactive to light. ENT: Pinnas intact and no signs of trauma or erythema. Ear canals clear and no discharge. TMs no erythema. No nasal discharge or bleeding noted. Oropharynx wi th no exudate, redness, swelling, masses, exudates, or evidence of obstruction. Uvula midline. Mucous membranes moist. Neck: Trachea midline, no masses palpated, and no cervical lymphadenopathy. No swelling. Supple, full range of motion. Chest/Axilla: No tenderness, no crepitus, no paradoxical movement, no retractions. Cardiovascular: Regular rate, regular rhythm, no murmur, no gallops. Symmetric pulses. No peripheral edema. Respiratory: Respirations even and unlabored. Lung sounds clear; no wheezes, r ales or rhonchi. Room air SpO2 99% Gastrointestinal: Obese No distention is appreciated. Bowel sounds are normal. No mass or organomegaly . No rebound. No rigidity. No voluntary or involuntary guarding. No Richard's sign. Tenderness upon palpation of upper quadrants as well as over the epigastrium : Negative CVA tenderness bilaterally Neurological: Normal speech, gross motor function intact, gross sensory function intact. No focal weakness/Paresthesia. Musculoskeletal/Extremities: All extremities have full range of motion, no pain or tenderness on palpation. Symmetric pulses. Integumentary: Intact. Skin is normal color, warm and dry. Cap refill less than 2 seconds. Results (Laboratory/Radiology) Laboratory/Radiology Laboratory Tests Test 10/22/24 23:34 10/23/24 02:30 White Blood Count 15.3 K/uL (4.8-10.8) H Red Blood Count 4.72 MIL/uL (4.50-6.20) Hemoglobin 15.4 g/dL (14.0-18.0) Hematocrit 44.3 % (42-54) Mean Corpuscular Volume 93.9 fL (79-99) Mean Corpuscular Hemoglobin 32.6 pg (27.0-33.0) Mean Corpuscular Hemoglobin Concent 34.8 g/dL (32.0-36.0) Red Cell Distribution Width 12.5 % (11.0-15.5) Platelet Count 319 K/uL (130-400) Mean Platelet Volume 8.6 fL (7.5-10.5) Immature Granulocyte % (Auto) 0.7 % (0-1) Neutrophils (%) (Auto) 80.0 % (40.0-77.0) H Lymphocytes (%) (Auto) 11.5 % (21.0-51.0) L Monocytes (%) (Auto) 6.7 % (3.0-13.0) Eosinophils (%) (Auto) 0.6 % (0.0-8.0) Basophils (%) (Auto) 0.5 % (0.0-5.0) Neutrophils # (Auto) 12.3 K/uL (1.8-7.7) H Lymphocytes # (Auto) 1.8 K/uL (1.0-4.8) Monocytes # (Auto) 1.0 K/uL (0.1-1.0) Eosinophils # (Auto) 0.09 K/uL (0.00-0.70) Basophils # (Auto) 0.07 K/uL (0.00-0.20) Absolute Immature Granulocyte (auto 0.11 K/uL (0-1) Nucleated Red Blood Cells 0.0 % (0.0-0.19) Sodium Level 133 mmol/L (136-145) L Potassium Level 3.7 mmol/L (3.5-5.1) Chloride Level 97 mmol/L (101-111) L Carbon Dioxide Level 31 mmol/L (21-32) Blood Urea Nitrogen 10 mg/dL (7-18) Creatinine 1.0 mg/dL (0.5-1.3) Glomerular Filtration Rate Calc 101 mL/min (>90) Random Glucose 110 mg/dL (70-105) H Total Calcium 9.1 mg/dL (8.5-10.1) Total Bilirubin 0.5 mg/dL (0.2-1.0) Direct Bilirubin 0.1 mg/dL (0.0-0.3) Aspartate Amino Transf (AST/SGOT) 19 U/L (10-37) Alanine Aminotransferase (ALT/SGPT) 45 U/L (12-78) Alkaline Phosphatase 53 U/L (50-136) Total Protein 7.4 g/dL (6.0-8.3) Albumin 3.8 g/dL (3.5-5.0) Lipase 25 U/L (16-77) Urine Color LIGHT-YELLOW (YELLOW) Urine Appearance CLEAR (CLEAR) Urine pH 8.0 (5.0-8.0) Urine Specific [place] OVER (1.001-1.031) Urine Protein 30 mg/dL (NEGATIVE) H Urine Glucose (UA) NEGATIVE mg/dL (NEGATIVE) Urine Ketones NEGATIVE mg/dL (NEGATIVE) Urine Occult Blood +- (TRACE) (NEGATIVE) H Urine Nitrate NEGATIVE (NEGATIVE) Urine Bilirubin NEGATIVE mg/dL (NEGATIVE) Urine Urobilinogen 0.2 mg/dL (0.2-1.0) Urine Leukocyte Esterase NEGATIVE Darlene/uL Labs Reviewed?: Yes CT Scan Comment: PATIENT: DEVYN CARNEY III MR#: [id number] : 1990 SEX: M AGE: 34 LOCATION: [facility] ORDER STATUS: REG ER REPORT#: [id number] SERVICE REASON: upper abdominal pain, hx diverticuliitis ORDERING PHYSICIAN: PATO DAVIS NP PROCEDURE: ABD PEL W - CT ABDOMEN/PELVIS W/CONTRAST CT ABDOMEN/PELVIS W/CONTRAST HISTORY: Upper abdominal pain COMPARISON: 05/10/2023 TECHNIQUE: Multiple sequential axial images of the abdomen and pelvis were obtained from the dome of the diaphragm through symphysis pubis. Patient was given 100 cc of Omnipaque through intravenous route. Oral contrast was not given. FINDINGS: No pleural effusion is seen bilaterally. There is no evidence of parenchymal disease or pulmonary nodule of the visualized lower lungs. Degenerative changes of the thoracolumbar spine are present. The heart is not enlarged. Gallbladder is contracted. Gastric distention is seen. The liver, spleen, adrenal glands and pancreas are unremarkable. There is no evidence of hydronephrosis bilaterally. No evidence of renal stone is seen. Fecal material is seen in the colon. There are normal size retroperitoneal and mesenteric lymph nodes. No ascites is seen. No definite CT evidence of acute appendicitis is seen. Pelvic sidewalls are symmetric bilaterally. Bladder is well distended without wall thickening. IMPRESSION: 1. No acute findings. CT was performed with one or more following dose reduction techniques: automated exposure control, adjustment of the mA and kv according to patient's size, or use of a iterative reconstruction technique. DICTATED BY: FARIDA MANCUSO MD DATE: 10/23/24132 ELECTRONICALLY SIGNED BY: FARIDA MANCUSO MD DATE: 10/23/24 014 ED Course ED Course Orders Procedure Category Date Status Time Lipase LAB 10/22/24 Complete 23:20 Urinalysis Profile LAB 10/22/24 In Process 23:20 Cbc With Differential LAB 10/22/24 Complete 23:20 Basic Metabolic Panel LAB 10/22/24 Complete 23:20 Hepatic Function Panel LAB 10/22/24 Complete 23:20 Mag/Alum/Simeth 30ml PHA 10/22/24 Complete (Maalox Plus 30ml) 23:30 Lidocaine Hcl 2% PHA 10/22/24 Complete Viscous (Lidocaine Hcl 23:30 Dicyclomine Hcl PHA 10/22/24 Complete (Bentyl 10mg/5ml 23:30 Ct Abdomen/Pelvis CT 10/23/24 Resulted W/Contrast 00:15 Iohexol (Omnipaque) PHA 10/23/24 Complete 01:07 0.9% Nacl 500ml PHA 10/23/24 Complete Iv.Soln (Ns 500ml 01:30 0.9% Nacl 500ml PHA 10/23/24 Complete Iv.Soln (Ns 500ml 02:30 Current Medications Medications (Trade) Dose Ordered Sig/Obi Route PRN Reason Start Time Stop Time Status Last Admin Dose Admin Al Hydroxide/Mg Hydroxide (MAALox PLUS 30ML) 15 ml ONCE ONCE PO 10/22/24 23:30 10/22/24 23:31 DC 10/22/24 23:44 Dicyclomine HCl (Bentyl 10mg/5ml Syrup) 10 mg ONCE ONCE PO 10/22/24 23:30 10/22/24 23:31 DC 10/22/24 23:44 Iohexol (Omnipaque) 35,000 mg STK-MED ONCE IV 10/23/24 01:07 10/23/24 01:10 DC Lidocaine HCl (Lidocaine HCl 2% Viscous) 10 ml ONCE ONCE PO 10/22/24 23:30 10/22/24 23:31 DC 10/22/24 23:44 Sodium Chloride 500 ml @ 0 mls/hr ONCE ONCE IV 10/23/24 01:30 10/23/24 01:31 DC 10/23/24 01:43 Sodium Chloride 500 ml @ 0 mls/hr ONCE ONCE IV 10/23/24 02:30 10/23/24 02:31 DC 10/23/24 02:26 Vital Signs Date Time Temp Pulse Resp B/P (MAP) Pulse Ox O2 Delivery O2 Flow Rate FiO2 10/22/24 23:49 97.9 99 20 168/88 96 Room Air* 0 21 10/22/24 23:02 99.0 100 20 153/93 100 Room Air Uneventful ED course. Vital signs stable; afebrile. Laboratory findings as noted below. WBCs 50.3, neutrophil 80%, lymphs 11.5, Na/Cl 133/97, and glucose 110. Elevated; 20. UA clear. CT scan of the abdomen and pelvis with IV contrast with no acute findings; constipation noted. While in the emergency department he received doses GI cocktail as well as NS 1000 mL IV as bolus. Findings were discussed with patient and all questions were answered. Medical Decision Making MDM MDM: Differential diagnosis: Diverticulitis, diverticulosis, constipation, GERD, gastritis Rationale: Tests considered and ordered secondary to shared decision making include: Lab, CT Previous outside records reviewed: Old ER visits. Risk of complication and/or morbidity or mortality of patient management: None Medications-Per medication reconciliation Need for hospitalization: Patient does not meet criteria for hospitalization. Need for emergency major/minor surgery: No There are no social concerns with this patient. Prescription drug management: Omeprazole, MiraLax Prescriptions will include symptomatic care Patient's prior external medical records from other ER visits were reviewed by me as indicated. Prior testing and results from previous visits were reviewed. Prior tests were taken into account with medical decision making and resource utilization, independent historian/historians were used to obtain complete medical history. I independently interpreted the test that were performed, results were reviewed by me and considered findings on radiology if ordered. Medical management and examination interpretation discussions were had by me with other qualified healthcare professionals as indicated for the patient's care. DX & DISP Disposition: Discharge Departure Impression: Primary Impression: GERD (gastroesophageal reflux disease) Additional Impressions: Gastritis, Constipation Condition: Stable Scripts Omeprazole (Omeprazole) 40 Mg Capsule.dr 1 CAP PO DAILY for 30 Days, #30 CAP 0 Refills Prov: PATO DAVIS SIPHONER 10/23/24 Polyethylene Glycol 3350 (Miralax) 17 Gram Powd.pack 17 GM PO DAILY for 7 Days, #7 PACKET 0 Refills Prov: PATO DAVIS SIPHONER 10/23/24 Additional Instructions: Increase p.o. fluid intake. Increase dietary fiber. Avoid spicy/fatty foods. Start omeprazole daily. Take MiraLax one packet every morning for constipation. Follow up with your primary care physician in the next week. You may benefit from follow up/referral to entry level account representative if symptoms persist Referrals: SELF,REFERRAL (PCP) Time of Disposition: 02:16 PATO DAVIS NP Oct 22, 2024 23:22
[2024-10-22 23:41] LABS: BASOPHILS # (AUTO) 0.07 K/uL (0.00-0.20); BASOPHILS % (AUTO) 0.5 % (0.0-5.0); EOSINOPHILS # (AUTO) 0.09 K/uL (0.00-0.70); EOSINOPHILS % (AUTO) 0.6 % (0.0-8.0); HEMATOCRIT 44.3 % (42-54); IMMATURE GRANULOCYTE ABSOLUTE 0.11 K/uL (0-1); LYMPHOCYTES # (AUTO) 1.8 K/uL (1.0-4.8); LYMPHOCYTES % (AUTO) 11.5 % (21.0-51.0); MEAN CORPUSCULAR HEMOGLOBIN 32.6 pg (27.0-33.0); MEAN CORPUSCULAR HGB CONC 34.8 g/dL (32.0-36.0); MEAN CORPUSCULAR VOLUME 93.9 fL (79-99); MONOCYTES % (AUTO) 6.7 % (3.0-13.0); NEUTROPHILS # (AUTO) 12.3 K/uL (1.8-7.7); PLATELET COUNT (AUTO) 319 K/uL (130-400); RED BLOOD CELL COUNT(AUTO) 4.72 MIL/uL (4.50-6.20); RED CELL DISTRIBUTION WIDTH 12.5 % (11.0-15.5); WHITE BLOOD COUNT (AUTO) 15.3 K/uL (4.8-10.8)
[2024-10-22] MEDS: MAG/ALUM/SIMETH 30 ML UDCUP PO ONE (23:44)
[2024-10-22] MEDS: DICYCLOMINE HCL 10 MG/5 ML ML PO ONE (23:44)
[2024-10-22] MEDS: LIDOCAINE HCL 2% VISCOUS 15 ML UDCUP PO ONE (23:44)
[2024-10-22 23:50] LABS: POTASSIUM 3.7 mmol/L (3.5-5.1)
[2024-10-22 23:55] LABS: ALBUMIN 3.8 g/dL (3.5-5.0); BILIRUBIN,DIRECT 0.1 mg/dL (0.0-0.3); BILIRUBIN,TOTAL 0.5 mg/dL (0.2-1.0); TOTAL PROTEIN, SERUM 7.4 g/dL (6.0-8.3)
[2024-10-23] MEDS ORDERED: IOHEXOL 350 MG/ML 100ML INFUS..BTL IV ONE (01:07)
--- NOTE | 2024-10-23 01:40 | HMCIMG ---
CT ABDOMEN/PELVIS W/CONTRAST HISTORY: Upper abdominal pain COMPARISON: 05/10/2023 TECHNIQUE: Multiple sequential axial images of the abdomen and pelvis were obtained from the dome of the diaphragm through symphysis pubis. Patient was given 100 cc of Omnipaque through intravenous route. Oral contrast was not given. FINDINGS: No pleural effusion is seen bilaterally. There is no evidence of parenchymal disease or pulmonary nodule of the visualized lower lungs. Degenerative changes of the thoracolumbar spine are present. The heart is not enlarged. Gallbladder is contracted. Gastric distention is seen. The liver, spleen, adrenal glands and pancreas are unremarkable. There is no evidence of hydronephrosis bilaterally. No evidence of renal stone is seen. Fecal material is seen in the colon. There are normal size retroperitoneal and mesenteric lymph nodes. No ascites is seen. No definite CT evidence of acute appendicitis is seen. Pelvic sidewalls are symmetric bilaterally. Bladder is well distended without wall thickening. IMPRESSION: 1. No acute findings. CT was performed with one or more following dose reduction techniques: automated exposure control, adjustment of the mA and kv according to patient's size, or use of a iterative reconstruction technique.
[2024-10-23] MEDS: 0.9% NACL 500ML IV.SOLN 500 ML IV ONE ×2 (01:43→02:26)
[2024-10-23] MEDS ORDERED: POLY17PO4 PO (02:15)
[2024-10-23] MEDS ORDERED: OMEP40CA21 PO (02:15)
[2024-10-23 02:45] LABS: ADD UA MICROSCOPIC YES; APPEARANCE,URINE CLEAR (CLEAR); BILIRUBIN,URINE NEGATIVE (NEGATIVE); COLOR,URINE LIGHT-YELLOW (YELLOW); GLUCOSE, URINE (UA) NEGATIVE (NEGATIVE); KETONES,URINE NEGATIVE (NEGATIVE); LEUKOCYTE ESTERASE ,URINE NEGATIVE Leu/uL (NEGATIVE); NITRATE,URINE NEGATIVE (NEGATIVE); PROTEIN,URINE 30 mg/dL (NEGATIVE); UROBILINOGEN,URINE 0.2 mg/dL (0.2-1.0)
[2024-10-23 02:47] LABS: MUCUS,URINE RARE LPF (None Seen); SQUAMOUS EPITHELIAL CELL,UR MANY /HPF (0-2)
[2024-10-23 03:02] VITALS: BP 150/79; PULSE 86; RESP 18; TEMP 98.2; O2SAT 98
== END 2024-10-23 03:20 | disposition home or self-care (01) ==
LOC: EDH 23:01
DX: K21.9 Gastro-esophageal reflux disease without esophagitis (principal); K29.70 Gastritis, unspecified, without bleeding; K59.00 Constipation, unspecified; Z79.899 Other long term (current) drug therapy
CPT/HCPCS: 99284; 80076; 80048; 83690; 85025; 81001; 36415; 74177; 96360; J7040 ×2; Q9967

== ENCOUNTER 2025-02-01 17:14 | Emergency (ER) | payer BC ==
[~2025-02-01] VITALS: Ht 157.5 cm; Wt 119.0 kg
[~2025-02-01 17:14] MED LIST changes: +OMEP40CA21 PO; +POLY17PO4 PO; -TAMS-1 PO; +TAMS-55 PO
--- NOTE | 2025-02-01 17:25 | ERN ---
ED Note History of Present Illness Stated Complaint: LEG PAIN Chief Complaint: Lower Extremity Pain/Injury Time Seen by MD: 17:19 Dictation: PATIENT IS A 34-YEAR-OLD MALE WITH COMPLAINTS OF SUDDEN ONSET OF RIGHT CALF PAIN TENDERNESS ONSET 1 HOUR PRIOR TO ARRIVAL. HE WAS AT WORK AND STARTED TO RUN WHEN HE FELT A SUDDEN POP OR PULL IN HIS CALF MUSCLE. AND HE HAD TO STOP RUNNING IMMEDIATELY. STATES HE WENT HOME TOOK HIS MOTHER'S TYLENOL WITH CODEINE AND THEN DROVE TO THE EMERGENCY ROOM. Allergies: Coded Allergies: No Known Allergies (Unverified Allergy, Unknown, 11/10/20) Home Meds Active Scripts Omeprazole (Omeprazole) 40 Mg Capsule.dr, 1 CAP PO DAILY for 30 Days, #30 CAP 0 Refills Prov:PATO DAVIS NP 10/23/24 Polyethylene Glycol 3350 (Miralax) 17 Gram Powd.pack, 17 GM PO DAILY for 7 Days, #7 PACKET 0 Refills Prov:PATO DAVIS NP 10/23/24 Ibuprofen (Ibuprofen) 600 Mg Tablet, 600 MG PO Q6H PRN for PAIN, #30 TAB Prov:CASEY SARGENT [facility] 05/06/23 Tamsulosin HCl (Flomax) 0.4 Mg Cap.er.24h, 0.4 MG PO DAILY, #14 CAPSULE. Prov:CASEY SARGENT [facility] 05/06/23 Ondansetron (Ondansetron Odt) 4 Mg Tab.rapdis, 4 MG PO TID for NAUSEA, #15 TAB Prov:GUICHO JIMÉNEZ MD 02/11/22 Acetaminophen with Codeine (Acetaminophen-Cod #3 Tablet) 1 Each Tablet, 1 TAB PO Q6H PRN for PAIN LEVEL 7 TO 10, #10 TAB Prov:GUICHO JIMÉNEZ MD 02/11/22 Amoxicillin/Potassium Clav (Amox Tr-K Clv 875-125 mg Tab) 1 Each Tablet, 1 EACH PO BID for 7 Days, #14 TAB Prov:GUICHO JIMÉNEZ MD 02/11/22 Reported Medications Acetaminophen (Tylenol Extra Strength) 500 Mg Tablet, 1000 MG PO AD, TAB 05/25/21 Past Medical History Past Medical History: No Pertinent History Surgical History: Other Surgical History Other: colon sx Social History: Drugs, ETOH RN Note Reviewed/Agreed w/PFSH: Yes Review of System Dictation CONSTITUTIONAL: NEGATIVE EXCEPT FOR HPI HEAD/FACE: NEGATIVE EXCEPT FOR HPI EENT: NEGATIVE EXCEPT FOR HPI RESPIRATORY: NEGATIVE EXCEPT FOR HPI GASTROINTESTINAL/ABDOMINAL: NEGATIVE EXCEPT FOR HPI GENITOURINARY: NEGATIVE EXCEPT FOR HPI MUSCULOSKELETAL: NEGATIVE EXCEPT FOR HPI RIGHT POSTERIOR CALF TENDERNESS SWELLING INTEGUMENTARY: NEGATIVE EXCEPT FOR HPI NEUROLOGICAL/PSYCH: NEGATIVE EXCEPT FOR HPI HEMATOLOGIC/LYMPHATIC: NEGATIVE EXCEPT FOR HPI ALL SYSTEMS NEGATIVE, EXCEPT NOTED ABOVE. 13 POINT REVIEW OF SYSTEMS ASSESSED AND ALL NEGATIVE EXCEPT FOR ABOVE. Initial Vital Sign VS Vital Signs Date Time Temp Pulse Resp B/P (MAP) Pulse Ox O2 Delivery O2 Flow Rate FiO2 02/01/25 17:18 98.2 89 18 140/85 100 Room Air 0 02/01/25 17:21 21 Physical Exam Dictation VITAL SIGNS REVIEWED GENERAL APPEARANCE: ALERT, ORIENTED X 3, MODERATE ACUTE DISTRESS, WELL DEVELOPED, NOURISHED. HEAD AND FACE: NON-TRAUMATIC. EYES: PERRL, PINK CONJUNCTIVAS, EYELID NO TRAUMA, ANTERIOR CHAMBER WITH ARCUS SENILIS. EARS: PINNAS INTACT AND NO SIGNS OF TRAUMA OR ERYTHEMA EAR CANALS CLEAR AND NO DISCHARGE TM NO ERYTHEMA NOSE: NO DISCHARGE, NO BLEEDING. OROPHARYNX: MOUTH NORMAL, TONGUE PINK, PHARYNX CLEAR,NO ERYTHEMA, TONSILS NO EXUDATES, NO ABSCESSES NOTED, MUCOUS MEMBRANE MOIST NECK: SUPPLE, NON-TENDER, NO THYROMEGALY, NO MASSES, NO JVD, NO BRUITS BREAST:DEFERRED CHEST:NO TENDERNESS, NO CREPITUS, NO PARADOXICAL MOVEMENT, NO RETRACTIONS LUNGS:CLEAR, WELL-VENTILATED, SYMMETRIC, NO RALES, NO WHEEZING, NO RHONCHI, NO STRIDOR, GOOD BREATH SOUNDS BILATERALLY HEART: REGULAR RATE, REGULAR RHYTHM, NO MURMUR, NO GALLOPS VASCULAR: NO PERIPHERAL EDEMA, ABDOMEN: SOFT, POSITIVE BOWEL SOUNDS, NONDISTENDED, NO GUARDING, NONTENDER, NO REBOUND, NO MASSES NO HEPATOMEGALY, NO SPLENOMEGALY, NO BLEVINS'S SIGN, NO HERNIAS. RECTAL: DEFERRED GENITAL: DEFERRED NEUROLOGICAL: NORMAL SPEECH, MOTOR FUNCTION INTACT, SENSORY FUNCTION INTACT MUSCULOSKELETAL: NECK NONTENDER, FULL RANGE OF MOTION, BACK NONTENDER, FULL RANGE OF MOTION, EXTREMITIES: RIGHT POSTERIOR CALF TENDERNESS SWELLING. DISTAL NEUROVASCULAR CMS INTACT. SKIN: COLOR PINK, DRY, NO TURGOR, NO RASH, NO LACERATIONS, NO ABRASIONS, NO CONTUSIONS. LYMPHATIC: DEFERRED Results (Laboratory/Radiology) Laboratory/Radiology Doppler ultrasound of right calf demonstrates small amount of fluid 2 x 1.8 x 0.8 cm with a edema. Hypo colic area 5.4 x 4 cm with a probable gastrocnemius tear. Labs Reviewed?: Yes EKG Comment: EKG SINUS RHYTHM/HEART RATE 89/LEFT VENTRICULAR HYPERTROPHY/AXIS NORMAL ED Course ED Course Orders Procedure Category Date Status Time Cyclobenzaprine Hcl PHA 02/01/25 Complete (Cyclobenzaprine Hcl 17:30 Ibuprofen 800 Mg Tab PHA 02/01/25 Complete (Motrin) 17:30 Us Soft Tissue Lower US 02/01/25 Taken Extremity 17:22 Crutches W/Training CPOE 02/01/25 Transmitted (Er) 19:27 Current Medications Medications (Trade) Dose Ordered Sig/Obi Route PRN Reason Start Time Stop Time Status Last Admin Dose Admin Cyclobenzaprine HCl (Cyclobenzaprine HCl) 10 mg ONCE ONCE PO 02/01/25 17:30 02/01/25 17:31 DC 02/01/25 17:53 Ibuprofen (moTRIN) 800 mg ONCE ONCE PO 02/01/25 17:30 02/01/25 17:31 DC 02/01/25 17:53 Vital Signs Date Time Temp Pulse Resp B/P (MAP) Pulse Ox O2 Delivery O2 Flow Rate FiO2 02/01/25 18:31 98.2 71 18 116/60 98 Room Air* 0 21 02/01/25 17:21 98.2 89 18 140/85 100 Room Air* 0 21 02/01/25 17:18 98.2 89 18 140/85 100 Room Air 0 1930/patient given crutches and told no weight-bearing and given rice instructions with ibuprofen until cleared by Dr. Juliette Del Angel call for an appointment on Monday. Medical Decision Making MDM Medical discharge making based on pain management and ultrasound of right calf. Patient shows a edematous area to the calf with a hypoechoic Area 5 x 4 x 4 cm Probable gastrocnemius tear. Given crutches with no weight-bearing told to follow up with Dr. Juliette Del Angel on Monday. DX & DISP Disposition: Discharge Departure Impression: Primary Impression: Gastrocnemius muscle tear Condition: Stable Scripts Ibuprofen (Ibuprofen 800 mg Tab) 800 Mg Tab 800 MG PO Q8H PRN for fever or pain, #30 TAB 0 Refills Prov: NICHOLAS LOPEZ NP 02/01/25 Additional Instructions: Follow-up with primary care provider in 1 to 2 days. Take medications as directed here in the emergency room. Okay to continue home medications unless otherwise discussed during your visit in the emergency room today. Return to your nearest emergency room if symptoms worsen or if there is no improvement. Call 911 if you need immediate assistance. Take Tylenol or Motrin [id number] as needed and if no contraindications are present. Increase oral hydration. A wound culture or urine culture was ordered here in the emergency room department please follow-up with primary care provider and advise them to get repeat ports from our facility. If you had any Vishnu wrap/splints that were applied here, please do not remove them until you see your primary care or specialty. Cool compresses to right calf and keep elevated three to 4 times a day. Crutches and no weight-bearing right leg until cleared by Dr. Juliette Del Angel call for an appointment. Referrals: SELF,REFERRAL (PCP) JONI DEL ANGEL JACK P NP Feb 01, 2025 17:25
[2025-02-01] MEDS: CYCLOBENZAPRINE HCL 10 MG TABLET PO ONE (17:53)
[2025-02-01] MEDS: ibuPROFEN 800 MG TAB PO ONE (17:53)
[2025-02-01] MEDS ORDERED: IBUP-2077 PO (19:39)
--- NOTE | 2025-02-01 19:54 | HMCIMG ---
Examination: Ultrasound examination of the posterior right calf area Clinical history: Pain after running Comparison: None Findings: Grayscale and color ultrasound images of the posterior right leg, right calf area demonstrates a 2.0 x 1.8 x 0.8 cm and 5.4 x 4.0 cm fluid collections that are highly concerning for a muscle injury. There is surrounding soft tissue edema. Recommend CT or MR imaging of the right leg for further evaluation. IMPRESSION: 1. Fluid collections in the right calf concerning for muscle injury, with surrounding soft tissue edema. /[place]
[2025-02-01 20:15] VITALS: BP 129/66; PULSE 68; RESP 18; TEMP 98.4; O2SAT 98
--- NOTE | 2025-02-01 20:17 | NUR ---
CRUTCH TRAINING PROVIDED WITH RETURN DEMONSTRATION DONE. EDUCATION PROVIDED REGARDING CRUTCH USE AND CALF INJURY. PT VERBALIZED UNDERSTANDING OF ALL EDUCATION PROVIDED.
== END 2025-02-01 20:29 | disposition home or self-care (01) ==
LOC: EDH 17:14
DX: S86.111A Strain of other muscle(s) and tendon(s) of posterior muscle group at lower leg level, right leg, initial encounter (principal); Z79.899 Other long term (current) drug therapy; W18.39XA Other fall on same level, initial encounter; Y93.89 Activity, other specified; Y92.89 Other specified places as the place of occurrence of the external cause; Y99.8 Other external cause status
CPT/HCPCS: 76882; 99284